=== PATIENT | male | born 1995 | race Caucasian/White ===

== ENCOUNTER 2019-05-01 10:42 | Emergency (ER) | payer SELFPAY ==
[2019-05-01 11:07] VITALS: BP 151/83; PULSE 83; TEMP 98.6; BMI 26.6
--- NOTE | 2019-05-01 11:13 | PDOC ---
History of Present Illness - General Chief Complaint: Pain, Acute Stated Complaint: RT KNEE INJURY Time Seen by Provider: 05/01/19 11:12 History Source: Patient - History of Present Illness Initial Comments: 05/01/19 12:24 Chief complaint: Knee injury Patient is a healthy 23-year-old male who states he twisted his knee yesterday while walking. Patient is complaining of pain to the right knee. he is having difficulty ambulating and is using a cane. he did not take any pain medicine today GENERAL/CONSTITUTIONAL: No fever, weakness. dizziness HEAD, EYES, EARS, NOSE AND THROAT: No change in vision. No ear pain or discharge. No sore throat. CARDIOVASCULAR: No chest pain RESPIRATORY: No shortness of breath or cough GASTROINTESTINAL: No pain, nausea, vomiting, diarrhea or constipation GENITOURINARY: No dysuria MUSCULOSKELETAL: No neck or back pain, +right knee pain SKIN: No rash NEUROLOGIC: No headache, vertigo, loss of consciousness, or loss of sensation. GENERAL: The patient is awake, alert, and fully oriented, in no acute distress. HEAD: Normal with no signs of trauma. EYES: Pupils equal, round and reactive to light, sclera anicteric, conjunctiva clear. ENT: pharynx: no erythema, no exudate, uvula midline NECK: supple CHEST: clear, nontender, rr BACK: no tenderness or signs of injury EXTREMITIES: Right knee with no deformity, minimal swelling, medial tenderness, limited range of motion, neurovascular intact. Rest of extremities, normal range of motion, no edema. NEUROLOGICAL: Normal speech, normal gait. SKIN: Warm, Dry Past History - Past Medical History Allergies/Adverse Reactions: Allergies Allergy/AdvReac Type Severity Reaction Status Date / Time No Known Allergies Allergy Verified 05/01/19 10:56 - Psycho Social/Smoking Cessation Hx Smoking History: Never smoked *Physical Exam - Vital Signs Last Vital Signs Temp Pulse Resp BP Pulse Ox 98.6 F 83 18 151/83 99 05/01/19 10:56 05/01/19 10:56 05/01/19 10:56 05/01/19 10:56 05/01/19 10:56 Procedures - Splinting Splint Location: Right: Knee Pre-Proc Neuro Vasc Exam: normal Pre-Made Type: knee immobilizer Post-Proc Neuro Vasc Exam: normal Medical Decision Making - Medical Decision Making 05/01/19 12:27 Healthy 23-year-old male who twisted knee yesterday. Having difficulty ambulating. Not likely fracture but will get x-ray. Patient will likely need immobilizer and crutches and orthopedic follow-up Discussed issues, findings, results, applicable medications and treatments and follow-up. All these were understood and all questions were answered Discharge - Discharge Information Problems reviewed: Yes Clinical Impression/Diagnosis: Right knee injury Qualifiers: Encounter type: initial encounter Qualified Code(s): S89.91XA - Unspecified injury of right lower leg, initial encounter Condition: Stable Disposition: HOME - Admission No - Additional Discharge Information Prescription Drug Monitoring Program (I-STOP) results: I-STOP not reviewed - Follow up/Referral Referrals: Lester Washington MD [Staff Physician] - - Patient Discharge Instructions Additional Instructions: Elevate, wear splint, use crutches You can apply ice for 20 minutes every 2 hours for the next 2 days Motrin 600 mg every 6 hours for pain. Call the orthopedist tomorrow Eleve, use frulas, use muletas Puede aplicar hielo pasquale 20 minutos cada 2 horas pasquale los prximos 2 campbell. Motrin 600 mg cada 6 horas para el dolor. Llame al orraymond palomino - Post Discharge Activity
[2019-05-01] MEDS ORDERED: IBUPROFEN 600 MG TABLET (FP) PO ONE (11:25)
== END 2019-05-01 12:05 | disposition home or self-care (01) ==
LOC: JER 10:42
PROC: 2W3QXYZ Immobilization of Right Lower Leg using Other Device (ICD-10-PCS; principal; 2019-05-01)
DX: S89.81XA Other specified injuries of right lower leg, initial encounter (principal); M25.561 Pain in right knee; X50.1XXA Overexertion from prolonged static or awkward postures, initial encounter; Y93.01 Activity, walking, marching and hiking; Y92.89 Other specified places as the place of occurrence of the external cause; Y99.8 Other external cause status
CPT/HCPCS: 73562-TC-RT-FY; 99282-25

== ENCOUNTER 2023-03-08 01:11 | Observation (INO) | payer SELFPAY ==
[2023-03-08] MEDS ORDERED: FOLIC ACID INJECTION - 1 MG, THIAMINE HCL 100 MG, MULTIVIT INJECTION ADULT 10 ML in SOD... IVPB ONE (04:18)
[2023-03-08] MEDS ORDERED: IBUPROFEN 600 MG TABLET (FP) PO ONE (04:21)
[2023-03-08] MEDS ORDERED: LIDOCAINE 5% TOPICAL PATCH TP ONE (04:21)
[2023-03-08] MEDS ORDERED: LIDOCAINE 5% TOPICAL PATCH ONE (04:36)
[2023-03-08] MEDS ORDERED: ACETAMINOPHEN INJECTION 100 ML IVPB ONE (05:14)
[2023-03-08] MEDS ORDERED: ACETAMINOPHEN 1000 MG/100 ML BAG IVPB ONE (05:16)
[2023-03-08 06:20] LABS: BASO % 0.7 % (0-2.0); EOS % 3.2 % (0-4.5); HEMATOCRIT 48.8 % (35.4-49); HEMOGLOBIN 16.2 GM/dL (11.7-16.9); LYMPH % 50.2 % (8-40); MCH 28.8 pg (25.7-33.7); MCHC 33.2 g/dl (32.0-35.9); MEAN CELL VOLUME 86.8 fl (80-96); MEAN PLT VOLUME 8.3 fl (7.5-11.1); NEUT % 40.9 % (42.8-82.8); PLATELET COUNT 331 10^3/uL (134-434); RBC 5.62 M/mm3 (4.00-5.60); RDW 13.4 % (11.9-15.9); WHITE BLOOD COUNT 5.5 K/mm3 (4.0-10.0)
[2023-03-08 06:38] LABS: POTASSIUM 4.2 mmol/L (3.5-5.1)
[2023-03-08 06:40] LABS: ALBUMIN 4.1 g/dl (3.4-5.0); BLOOD UREA NITROGEN 8.1 mg/dL (7-18); CALCIUM 8.9 mg/dL (8.5-10.1)
[2023-03-08 06:44] LABS: CREATININE 0.9 mg/dL (0.55-1.3)
[2023-03-08 06:45] LABS: BILIRUBIN,TOTAL 0.7 mg/dL (0.2-1); TOT PROT 8.6 g/dl (6.4-8.2)
[2023-03-08] MEDS ORDERED: METHOCARBAMOL 500 MG TABLET PO ONE (08:09)
[2023-03-08] MEDS ORDERED: KETOROLAC TROMETHAMINE 30 MG/1 ML VIAL IM ONE (08:11)
[2023-03-08] MEDS ORDERED: KETOROLAC TROMETHAMINE 15 MG/ML VIAL ONE ×2 (08:35→20:30)
[2023-03-08] MEDS ORDERED: METHOCARBAMOL 500 MG TABLET ONE (08:35)
[2023-03-08] MEDS ORDERED: ACETAMINOPHEN 500 MG TABLET (FP) PO PRN (11:50)
[2023-03-08] MEDS: KETOROLAC TROMETHAMINE 15 MG/ML VIAL IVPUSH PRN ×2 (14:13→20:54)
[2023-03-08] MEDS ORDERED: KETOROLAC TROMETHAMINE 30 MG/1 ML VIAL ONE (14:15)
[2023-03-08] MEDS: LIDOCAINE PATCH REMOVAL MC SCH (23:01)
[2023-03-09 01:40] VITALS: RESP 18
[2023-03-09 10:23] LABS: ALBUMIN 3.2 g/dl (3.4-5.0); BILIRUBIN,TOTAL 1.8 mg/dL (0.2-1); BLOOD UREA NITROGEN 14.4 mg/dL (7-18); CREATININE 0.9 mg/dL (0.55-1.3); MAGNESIUM 2.1 mg/dL (1.8-2.4); PHOSPHOROUS 3.8 mg/dL (2.5-4.9); TOT PROT 6.9 g/dl (6.4-8.2)
[2023-03-09 13:14] VITALS: BMI 29.5
[2023-03-09] MEDS: LIDOCAINE 5% TOPICAL PATCH TP SCH (18:30)
[2023-03-09] MEDS ORDERED: LIDOCAINE PATCH REMOVAL MC SCH (22:00)
[2023-03-09] MEDS: LIDOCAINE PATCH REMOVAL MC SCH (22:05)
[2023-03-10] MEDS: LIDOCAINE 5% TOPICAL PATCH TP SCH (10:23)
[2023-03-10 11:32] VITALS: BP 136/74; PULSE 63; TEMP 98
== END 2023-03-10 14:05 | disposition home or self-care (01) ==
LOC: JER 01:11 → JERBED 11:16 → J6S 03-09 01:09
PROVIDERS: ADMIT Internal Medicine; ATTEND Internal Medicine
PROC: 3E033NZ Introduction of Analgesics, Hypnotics, Sedatives into Peripheral Vein, Percutaneous Approach (ICD-10-PCS; principal; 2023-03-08)
PROC: 3E033GC Introduction of Other Therapeutic Substance into Peripheral Vein, Percutaneous Approach (ICD-10-PCS; 2023-03-08)
PROC: 3E0233Z Introduction of Anti-inflammatory into Muscle, Percutaneous Approach (ICD-10-PCS; 2023-03-08)
PROC: 3E0333Z Introduction of Anti-inflammatory into Peripheral Vein, Percutaneous Approach (ICD-10-PCS; 2023-03-08)
DX: M79.601 Pain in right arm (principal); M62.81 Muscle weakness (generalized); R20.0 Anesthesia of skin; M25.511 Pain in right shoulder
CPT/HCPCS: 36415; 73030-TC-RT-FY; 73070-TC-RT-FY; 73090-TC-RT-FY; 73201-TC-RT; 80053; 83735; 84100; 85025; 85379; 93971; 99285-25; G0378; Q9967